=== PATIENT | male | born 1980 | race Caucasian/White ===

== ENCOUNTER 2017-04-10 17:37 | Emergency (ER) | payer SELFPAY ==
[~2017-04-10] VITALS: Ht 182.8 cm; Wt 104.3 kg
[~2017-04-10 17:37] MED LIST: CLINDAMYCIN HC300 MG PO; CYCLOBENZAPRINE10 MG PO; HYDROCODONE BIT1 T11 PO; KEFLEX500 MG PO; MOTRIN800 MG PO; Motrin,Rufen800 MG PO; NAPROSYN500 MG PO; NORCO 5-325 TA1 EACH PO; PREDNISONE10 MG PO
[2017-04-10] MEDS ORDERED: NAPROSYN500 MG PO (19:15)
== END 2017-04-10 19:18 | disposition home or self-care (01) ==
LOC: ED 17:37
DX: S93.402A Sprain of unspecified ligament of left ankle, initial encounter (principal); S90.112A Contusion of left great toe without damage to nail, initial encounter; R03.0 Elevated blood-pressure reading, without diagnosis of hypertension; X50.1XXA Overexertion from prolonged static or awkward postures, initial encounter; Y93.89 Activity, other specified; Y92.9 Unspecified place or not applicable; Y99.9 Unspecified external cause status

== ENCOUNTER 2018-05-12 18:35 | Emergency (ER) | payer SELFPAY ==
[~2018-05-12] VITALS: Ht 182.8 cm; Wt 104.3 kg
[2018-05-12 19:23] LABS: BASO % 0.3 % (0.0-1.0); EOS # 0.2 10*3/uL (0.0-0.4); EOS % 2.1 % (1.0-4.0); HEMOGLOBIN 15.9 g/dl (14.0-18.0); LYMPH # 1.5 10*3/uL (1.3-4.4); LYMPH % 16.6 % (27.0-41.0); MEAN CELL VOLUME 92.7 fl (80.0-94.0); MEAN CORPUSCULAR HGB 30.7 pg (27.0-31.0); MEAN CORPUSCULAR HGB CONC 33.1 g/dl (33.0-37.0); MEAN PLATELET VOLUME 9.4 fl (9.6-12.3); MONO # 0.8 10*3/uL (0.1-1.0); MONO % 9.6 % (3.0-9.0); NEUT # 6.2 10*3/uL (2.3-7.9); NEUT % 70.9 % (47.0-73.0); PLATELET COUNT AUTOMATED 211 10*3/uL (130-400); RED BLOOD COUNT 5.18 10*6/uL (4.50-5.90); RED CELL DISTRI WIDTH 12.6 % (0-14.5); WHITE BLOOD COUNT 8.7 10*3/uL (4.8-10.8)
[2018-05-12 19:38] LABS: ALBUMIN 3.1 gm/dl (3.1-4.5); ALKALINE PHOSPHATASE 74 U/L (45-117); BUN 7 mg/dl (7-24); CHLORIDE 103 mmol/L (98-107); CREATININE 0.81 mg/dL (0.70-1.30); POTASSIUM 3.9 mmol/L (3.5-5.1); SGOT/AST 13 IU/L (3-35); SGPT/ALT 24 U/L (12-78); SODIUM 139 mmol/L (136-145); TOTAL PROTEIN 7.4 gm/dL (6.4-8.2)
[2018-05-12 20:10] LABS: BODY FLUID WBC 6562 /uL
[2018-05-12 21:11] LABS: BF LYMPHOCYTES 1 %; BF MACROPHAGES 14 %; BF NEUTROPHILS 85 %
[2018-05-12] MEDS ORDERED: VIBRAMYCIN100 MG PO (21:23)
[2018-05-12] MEDS ORDERED: Motrin,Rufen800 MG PO (21:27)
== END 2018-05-12 21:40 | disposition home or self-care (01) ==
LOC: ED 18:35
PROVIDERS: Physician Assistant
DX: M65.861 Other synovitis and tenosynovitis, right lower leg (principal); M25.551 Pain in right hip; M25.561 Pain in right knee

== ENCOUNTER → 2018-10-22 | Outpatient (CLI) | payer SELFPAY ==
[~2018-10-22] MED LIST changes: +EC NAPROSYN500 MG PO; +INDOCIN50 M2 PO; +VIBRAMYCIN100 MG PO
== END | disposition home or self-care (01) ==
LOC: RESCLI 01:53
DX: M10.9 Gout, unspecified (principal); R00.1 Bradycardia, unspecified; F10.10 Alcohol abuse, uncomplicated; Z71.89 Other specified counseling; Z88.8 Allergy status to other drugs, medicaments and biological substances

== ENCOUNTER → 2018-12-14 | Outpatient (CLI) | payer SELFPAY | END | disposition home or self-care (01) | LOC: RESCLI 01:08 | DX: F10.10 Alcohol abuse, uncomplicated (principal); R00.1 Bradycardia, unspecified; M1A.9XX0 Chronic gout, unspecified, without tophus (tophi); Z71.89 Other specified counseling; Z79.899 Other long term (current) drug therapy; Z88.8 Allergy status to other drugs, medicaments and biological substances ==

== ENCOUNTER 2019-11-18 19:30 | Emergency (ER) | payer SELFPAY ==
[~2019-11-18] VITALS: Ht 180.3 cm; Wt 104.3 kg
[2019-11-18 20:56] LABS: BASO % 0.3 % (0.0-1.0); EOS # 0.1 10*3/uL (0.0-0.4); HEMATOCRIT 46.8 % (42.0-52.0); HEMOGLOBIN 15.8 g/dl (14.0-18.0); LYMPH # 1.5 10*3/uL (1.3-4.4); LYMPH % 13.1 % (27.0-41.0); MEAN CORPUSCULAR HGB 31.7 pg (27.0-31.0); MEAN CORPUSCULAR HGB CONC 33.8 g/dl (33.0-37.0); MEAN PLATELET VOLUME 9.4 fl (9.6-12.3); MONO # 0.9 10*3/uL (0.1-1.0); MONO % 7.6 % (3.0-9.0); NEUT % 77.6 % (47.0-73.0); PLATELET COUNT AUTOMATED 221 10*3/uL (130-400); RED BLOOD COUNT 4.98 10*6/uL (4.50-5.90); RED CELL DISTRI WIDTH 12.3 % (0-14.5); WHITE BLOOD COUNT 11.7 10*3/uL (4.8-10.8)
[2019-11-18 21:14] LABS: ALBUMIN 3.4 gm/dl (3.1-4.5); BUN 8 mg/dl (7-24); CHLORIDE 107 mmol/L (98-107); CREATININE 0.78 mg/dL (0.70-1.30); POTASSIUM 3.8 mmol/L (3.5-5.1); SGOT/AST 19 IU/L (3-35); SGPT/ALT 28 U/L (12-78); SODIUM 136 mmol/L (136-145); TOTAL PROTEIN 7.9 gm/dL (6.4-8.2)
[2019-11-18 21:15] LABS: ALKALINE PHOSPHATASE 88 U/L (45-117)
== END 2019-11-18 23:10 | disposition left against medical advice (07) ==
LOC: ED 19:30
PROVIDERS: Physician Assistant
DX: L03.113 Cellulitis of right upper limb (principal)

== ENCOUNTER 2019-11-19 01:13 | Inpatient (IN) | payer SELFPAY ==
[~2019-11-19] VITALS: Ht 180.3 cm; Wt 101.8 kg
[2019-11-19] VITALS (9 sets, daily range): BP systolic 137–172; BP diastolic 63–100
[2019-11-19 06:23] LABS: BASO # 0.1 10*3/uL (0.0-0.1); BASO % 0.4 % (0.0-1.0); EOS # 0.2 10*3/uL (0.0-0.4); EOS % 1.7 % (1.0-4.0); HEMATOCRIT 44.9 % (42.0-52.0); HEMOGLOBIN 14.7 g/dl (14.0-18.0); LYMPH # 2.1 10*3/uL (1.3-4.4); LYMPH % 17.2 % (27.0-41.0); MEAN CELL VOLUME 94.9 fl (80.0-94.0); MEAN CORPUSCULAR HGB 31.1 pg (27.0-31.0); MEAN CORPUSCULAR HGB CONC 32.7 g/dl (33.0-37.0); MEAN PLATELET VOLUME 9.7 fl (9.6-12.3); MONO # 1.3 10*3/uL (0.1-1.0); MONO % 10.5 % (3.0-9.0); NEUT # 8.5 10*3/uL (2.3-7.9); NEUT % 69.6 % (47.0-73.0); PLATELET COUNT AUTOMATED 238 10*3/uL (130-400); RED BLOOD COUNT 4.73 10*6/uL (4.50-5.90); RED CELL DISTRI WIDTH 12.2 % (0-14.5); WHITE BLOOD COUNT 12.2 10*3/uL (4.8-10.8)
[2019-11-19 06:44] LABS: BUN 10 mg/dl (7-24); CHLORIDE 110 mmol/L (98-107); CHOLESTEROL 175 mg/dL (<200); CREATININE 0.89 mg/dL (0.70-1.30); FREE T4 0.88 ng/dl (0.76-1.46); HDL CHOLESTEROL 67 mg/dl (40-60); LDL CHOLESTEROL 68 mg/dL (9-159); PHOSPHOROUS 2.6 mg/dL (2.5-4.9); POTASSIUM 3.8 mmol/L (3.5-5.1); SODIUM 137 mmol/L (136-145); TRIGLYCERIDES 198 mg/dl (<150); VLDL CHOLESTEROL 40 mg/dL (6-40)
[2019-11-19 06:58] LABS: ACT PARTIAL THROMBO TIME 28.2 SECONDS (20.0-32.1)
[2019-11-19 08:09] LABS: VITAMIN D, 25-HYDROXY 23.5 ng/mL (30-100)
[2019-11-20] VITALS: BP 137/78
[2019-11-20 08:00] VITALS: BP 138/88
[2019-11-20] MEDS ORDERED: NORCO 5-325 TA1 EACH PO (09:53)
[2019-11-20] MEDS ORDERED: ALLOPURINOL100 MG PO (09:53)
[2019-11-20] MEDS ORDERED: PREDNISONE50 MG PO (09:53)
[2019-11-20] MEDS ORDERED: OMNICEF300 MG PO (09:53)
[2019-11-20] MEDS ORDERED: VITAMIN D32000 UNI1 PO (09:53)
== END 2019-11-20 11:28 | disposition home or self-care (01) | DRG 872 ==
LOC: ED 01:13 → EDHOLD 02:38 → 5E 02:57
PROVIDERS: Internal Medicine; ADMIT Internal Medicine
DX: A41.9 Sepsis, unspecified organism (principal); L03.113 Cellulitis of right upper limb; M10.9 Gout, unspecified; E66.9 Obesity, unspecified; E55.9 Vitamin D deficiency, unspecified; R03.0 Elevated blood-pressure reading, without diagnosis of hypertension; Z71.6 Tobacco abuse counseling; Z72.0 Tobacco use; Z68.31 Body mass index [BMI] 31.0-31.9, adult; Z82.49 Family history of ischemic heart disease and other diseases of the circulatory system

== ENCOUNTER 2019-12-23 22:59 | Emergency (ER) | payer SELFPAY ==
[~2019-12-23] VITALS: Ht 180.3 cm; Wt 104.3 kg
[~2019-12-23 22:59] MED LIST changes: +ALLOPURINOL100 MG PO; +OMNICEF300 MG PO; +PREDNISONE50 MG PO; +VITAMIN D32000 UNI1 PO
[2019-12-23 23:40] LABS: BASO % 0.4 % (0.0-1.0); EOS # 0.1 10*3/uL (0.0-0.4); EOS % 0.9 % (1.0-4.0); HEMATOCRIT 43.1 % (42.0-52.0); HEMOGLOBIN 14.1 g/dl (14.0-18.0); LYMPH # 1.6 10*3/uL (1.3-4.4); LYMPH % 15.7 % (27.0-41.0); MEAN CELL VOLUME 92.5 fl (80.0-94.0); MEAN CORPUSCULAR HGB 30.3 pg (27.0-31.0); MEAN CORPUSCULAR HGB CONC 32.7 g/dl (33.0-37.0); MEAN PLATELET VOLUME 9.6 fl (9.6-12.3); MONO # 0.7 10*3/uL (0.1-1.0); MONO % 6.8 % (3.0-9.0); NEUT # 7.8 10*3/uL (2.3-7.9); NEUT % 75.8 % (47.0-73.0); PLATELET COUNT AUTOMATED 210 10*3/uL (130-400); RED BLOOD COUNT 4.66 10*6/uL (4.50-5.90); RED CELL DISTRI WIDTH 12.6 % (0-14.5); WHITE BLOOD COUNT 10.3 10*3/uL (4.8-10.8)
[2019-12-23 23:53] LABS: BUN 10 mg/dl (7-24); CHLORIDE 107 mmol/L (98-107); CREATININE 0.86 mg/dL (0.70-1.30); POTASSIUM 3.4 mmol/L (3.5-5.1); SODIUM 137 mmol/L (136-145); URIC ACID 6.3 mg/dL (3.5-7.2)
[2019-12-24] MEDS ORDERED: NORCO 5-325 TA1 EACH PO (00:33)
[2019-12-24] MEDS ORDERED: INDOMETHACIN50 MG PO (00:33)
== END 2019-12-24 01:30 | disposition home or self-care (01) ==
LOC: ED 22:59
PROVIDERS: Emergency Medicine Emergency Medical Services
DX: M10.9 Gout, unspecified (principal); F17.200 Nicotine dependence, unspecified, uncomplicated; Z79.899 Other long term (current) drug therapy

== ENCOUNTER 2020-05-18 21:08 | Emergency (ER) | payer SELFPAY ==
[~2020-05-18] VITALS: Ht 180.3 cm; Wt 108.9 kg
[~2020-05-18 21:08] MED LIST changes: +INDOMETHACIN50 MG PO
[2020-05-18] MEDS ORDERED: INDOMETHACIN50 MG PO (22:49)
[2020-05-18] MEDS ORDERED: NORCO 5-325 TA1 EACH PO (22:53)
== END 2020-05-18 23:39 | disposition home or self-care (01) ==
LOC: ED 21:08
DX: M10.9 Gout, unspecified (principal); M79.641 Pain in right hand; M79.642 Pain in left hand; E66.9 Obesity, unspecified; F17.210 Nicotine dependence, cigarettes, uncomplicated

== ENCOUNTER 2020-09-05 22:37 | Observation (INO) | payer MEDICAID ==
[~2020-09-05] VITALS: Ht 180.3 cm; Wt 106.2 kg
[2020-09-05 22:49] VITALS: BP 176/90
[2020-09-05 22:51] VITALS: BP 170/101
[2020-09-05 23:57] LABS: BASO # 0.1 10*3/uL (0.0-0.1); BASO % 0.5 % (0.0-1.0); EOS # 0.1 10*3/uL (0.0-0.4); EOS % 0.8 % (1.0-4.0); HEMATOCRIT 47.7 % (42.0-52.0); LYMPH % 10.6 % (27.0-41.0); MEAN CELL VOLUME 92.6 fl (80.0-94.0); MEAN CORPUSCULAR HGB 30.3 pg (27.0-31.0); MEAN CORPUSCULAR HGB CONC 32.7 g/dl (33.0-37.0); MEAN PLATELET VOLUME 9.4 fl (9.6-12.3); MONO # 0.6 10*3/uL (0.1-1.0); MONO % 6.5 % (3.0-9.0); NEUT # 7.7 10*3/uL (2.3-7.9); NEUT % 81.3 % (47.0-73.0); PLATELET COUNT AUTOMATED 236 10*3/uL (130-400); RED BLOOD COUNT 5.15 10*6/uL (4.50-5.90); RED CELL DISTRI WIDTH 13.2 % (0-14.5); WHITE BLOOD COUNT 9.5 10*3/uL (4.8-10.8)
[2020-09-06] VITALS (8 sets, daily range): BP systolic 138–161; BP diastolic 86–99
[2020-09-06 00:08] LABS: ACT PARTIAL THROMBO TIME 25.4 SECONDS (20.0-32.1)
[2020-09-06] MEDS ORDERED: CEPHALEXIN500 M1 PO ×2 (00:15)
[2020-09-06 00:16] LABS: ALBUMIN 3.7 gm/dl (3.1-4.5); ALKALINE PHOSPHATASE 93 U/L (45-117); BUN 6 mg/dl (7-24); CHLORIDE 107 mmol/L (98-107); CREATININE 0.79 mg/dL (0.70-1.30); LIPASE 214 U/L (73-393); POTASSIUM 3.2 mmol/L (3.5-5.1); SGOT/AST 43 IU/L (3-35); SGPT/ALT 42 U/L (12-78); SODIUM 141 mmol/L (136-145); TOTAL PROTEIN 8.1 gm/dL (6.4-8.2)
[2020-09-06 00:37] LABS: BILIRUBIN Negative (Negative); BLOOD Negative (Negative); CLARITY Clear (Clear); COLOR Yellow (Yellow); GLUCOSE Negative (Negative); KETONE Negative (Negative); LEUKO ESTERASE Negative (Negative); NITRITE Negative (Negative); PH 7.5 (4.5-8.0); SPECIFIC GRAVITY <= 1.005 (1.001-1.030); UROBILINOGEN 0.2 E.U./dl (0.0-1.0)
[2020-09-06 01:02] LABS: URINE AMPHETAMINES < 1000 (1000ng/ml); URINE BARBITURATES < 200 (200ng/ml); URINE BENZODIAZEPINES < 200 (200ng/ml); URINE CANNABINOIDS (THC) < 50 (50ng/ml); URINE COCAINE < 300 (300ng/ml); URINE METHADONE < 300 (300ng/ml); URINE OPIATES < 300 (300ng/ml)
[2020-09-06 01:06] LABS: URINE PHENCYCLIDINE < 25 (25ng/ml)
[2020-09-06 01:18] LABS: WBC 0-2 wbc/hpf (0-5)
[2020-09-06 01:19] LABS: RBC 0-2 rbc/hpf (0-2)
--- NOTE | 2020-09-06 01:44 | NUR ---
PT DENIES ANY WOUNDS AT THIS TIME.
--- NOTE | 2020-09-06 03:22 | NUR ---
SECOND EKG COMPLETED.
[2020-09-06 07:01] LABS: BASO # 0.1 10*3/uL (0.0-0.1); BASO % 0.7 % (0.0-1.0); EOS # 0.2 10*3/uL (0.0-0.4); EOS % 2.7 % (1.0-4.0); HEMATOCRIT 42.6 % (42.0-52.0); LYMPH # 2.1 10*3/uL (1.3-4.4); LYMPH % 25.4 % (27.0-41.0); MEAN CELL VOLUME 92.6 fl (80.0-94.0); MEAN CORPUSCULAR HGB 30.4 pg (27.0-31.0); MEAN CORPUSCULAR HGB CONC 32.9 g/dl (33.0-37.0); MEAN PLATELET VOLUME 9.2 fl (9.6-12.3); MONO # 0.8 10*3/uL (0.1-1.0); MONO % 9.1 % (3.0-9.0); NEUT # 5.1 10*3/uL (2.3-7.9); NEUT % 61.9 % (47.0-73.0); PLATELET COUNT AUTOMATED 190 10*3/uL (130-400); RED CELL DISTRI WIDTH 13.5 % (0-14.5); WHITE BLOOD COUNT 8.2 10*3/uL (4.8-10.8)
[2020-09-06 07:31] LABS: BUN 5 mg/dl (7-24); CHLORIDE 111 mmol/L (98-107); POTASSIUM 3.7 mmol/L (3.5-5.1); SODIUM 142 mmol/L (136-145)
--- NOTE | 2020-09-06 07:39 | NUR ---
PT REFUSED PHOTO OF LACERATION.
[2020-09-06 07:45] LABS: CHOLESTEROL 161 mg/dL (<200); CREATININE 0.74 mg/dL (0.70-1.30); HDL CHOLESTEROL 73 mg/dl (40-60); LDL CHOLESTEROL 64 mg/dL (9-159); TRIGLYCERIDES 120 mg/dl (<150); VLDL CHOLESTEROL 24 mg/dL (6-40)
--- NOTE | 2020-09-06 08:00 | NUR ---
PT SITTING UP IN BED TALKING TO RESIDENT. A&OX3, DENIES PAIN, SOB, CHEST PAIN, OR DIZZINESS [facility] INTACT TO LEFT PARITAL AREA, NO DRAINAGE CT HERE TO TRANSPORT TO RADIOLOGY
--- NOTE | 2020-09-06 08:34 | NUR ---
PT RETURNED FROM CT, AMBULATED TO [facility]STR[facility]OM [facility]IST[facility], GAIT SLOW AND STEADY
[2020-09-06 08:37] LABS: VITAMIN D, 25-HYDROXY 31.8 ng/mL (30-100)
--- NOTE | 2020-09-06 11:24 | NUR ---
REPORT TO BOB
--- NOTE | 2020-09-06 11:41 | NUR ---
PT RESTING BED. PROVIDED PT WITH LUNCH. RESP EASY AND NONLABORED ON ROOM AIR. NO COMPLAINTS VOICED.
--- NOTE | 2020-09-06 11:57 | NUR ---
NOTIFIED DR SINGH OF CONSULT.
--- NOTE | 2020-09-06 14:48 | NUR ---
PT AMBULATED TO BATHROOM. GAIT STEADY. NO FURTHER COMPLAINTS.
--- NOTE | 2020-09-06 17:00 | NUR ---
A 39, admitted to 5E, under the services of THAD Pastrana DO with a diagnosis of SYNCOPE, ELEVATED TROPONINS. Chief complaint is SYNCOPAL EPISODE WITH FALL AND LACERATION. Patient arrived via bed from ER. Monitor applied. Initial assessment completed. Vital signs taken and recorded. THAD PASTRANA DO notified of admission to the unit. Orders received. See assessment for past medical history, medications and allergies. Patient and/or family oriented to unit. [address] visitation policy reviewed. Clothing/patient valuable form completed. JAGUAR SANDOVAL R
[2020-09-06] MEDS ORDERED: INDOMETHACIN50 MG PO (17:08)
--- NOTE | 2020-09-06 19:05 | NUR ---
DR. MORTENSEN CALLED AWARE OF ORTHOSTATIC BP. SEE INTERVENTIONS SCREEN. HE WILL LOOK AT IT.
--- NOTE | 2020-09-06 20:00 | NUR ---
IN TO ASSESS PATIENT. PATIENT SLEEPING BUT AROUSES EASILY. PLESANT AND COOPERATIVE. BREATHING IS EASY AND REGULAR ON ROOM AIR. PATIENT STATES HE FEELS PRETTY GOOD RIGHT NOW JUST A LITTLE SORE IN HIS LEFT KNEE AND LEFT RIBS WHERE HE FELL AND HIT. PATIENT STATES HIS BLOOD PRESSURE HAS BEEN A BIT UP, BP MANUALLY WAS 138/86. HE STATES HE NORMALLY DRINKS ABOUT 10 BEERS DAILY SO HE DIDN'T KNOW IF THAT WAS THE REASON. NO VISABLE TREMORS NOTED. PATIENT HAS NO COMPLAINTS BESIDES BEING TIRED. CALL LIGHT WITHIN REACH, WILL MONITOR
[2020-09-07] VITALS: BP 149/90
[2020-09-07 06:52] LABS: BASO # 0.1 10*3/uL (0.0-0.1); BASO % 0.7 % (0.0-1.0); EOS # 0.3 10*3/uL (0.0-0.4); EOS % 2.8 % (1.0-4.0); HEMATOCRIT 41.3 % (42.0-52.0); LYMPH # 1.9 10*3/uL (1.3-4.4); LYMPH % 17.7 % (27.0-41.0); MEAN CELL VOLUME 93.7 fl (80.0-94.0); MEAN CORPUSCULAR HGB 30.6 pg (27.0-31.0); MEAN CORPUSCULAR HGB CONC 32.7 g/dl (33.0-37.0); MONO # 0.9 10*3/uL (0.1-1.0); MONO % 8.2 % (3.0-9.0); NEUT # 7.4 10*3/uL (2.3-7.9); NEUT % 70.2 % (47.0-73.0); PLATELET COUNT AUTOMATED 182 10*3/uL (130-400); RED BLOOD COUNT 4.41 10*6/uL (4.50-5.90); RED CELL DISTRI WIDTH 13.2 % (0-14.5); WHITE BLOOD COUNT 10.6 10*3/uL (4.8-10.8)
[2020-09-07 07:05] LABS: BUN 4 mg/dl (7-24); CHLORIDE 107 mmol/L (98-107); CREATININE 0.65 mg/dL (0.70-1.30); POTASSIUM 3.4 mmol/L (3.5-5.1); SODIUM 140 mmol/L (136-145)
--- NOTE | 2020-09-07 09:00 | NUR ---
Medical Imaging Technician in to talk to patient. Patient states lives at home with his girlfriend. There are 0 steps in the home. There are 5 outside steps. Physician: [facility]: [facility] Home health services: none Patient's level of ADLs: INDEPENDENT Patient has working utilities: yes DME: none Follow-up physician's appointment after d/c: will be made by the hospitalist nurse director upon discharge Does patient want to access PORTAL?: no Discharge plan discussed with patient. He lives at home with his girlfriend. He is independent in his ADLs and ambulation. Discussed home health care services and he declines. CM will continue to follow for any discharge planning needs. When medically stable he will be discharged to home. He states his girlfriend will provide transportation on discharge. VIKAS LEONG
[2020-09-07 12:00] VITALS: BP 130/82
--- NOTE | 2020-09-07 14:54 | NUR ---
Discharge instructions reviewed with patient/family. Patient receptive and verbalizes understanding. Follow-up care arranged. Written instructions given to patient/family. RABIA DICKEY
== END 2020-09-07 14:54 | disposition home or self-care (01) ==
LOC: ED 22:37 → EDHOLD 09-06 01:12 → 5E 09-06 16:46
PROVIDERS: Hospitalist; Internal Medicine; Physician Assistant; ADMIT Family Medicine; ATTEND Family Medicine
DX: R07.89 Other chest pain (principal); R55 Syncope and collapse; R77.8 Other specified abnormalities of plasma proteins; S01.01XA Laceration without foreign body of scalp, initial encounter; I10 Essential (primary) hypertension; E87.6 Hypokalemia; R73.9 Hyperglycemia, unspecified; R74.01 Elevation of levels of liver transaminase levels; R79.82 Elevated C-reactive protein (CRP); F17.220 Nicotine dependence, chewing tobacco, uncomplicated; E66.9 Obesity, unspecified

== ENCOUNTER → 2020-09-25 | Outpatient (CLI) | payer SELFPAY ==
[~2020-09-25] MED LIST changes: +CEPHALEXIN500 M1 PO
== END | disposition home or self-care (01) ==
LOC: RESCLI 09-24 00:36
PROVIDERS: ATTEND Emergency Medicine
DX: Z48.02 Encounter for removal of sutures (principal); M1A.9XX0 Chronic gout, unspecified, without tophus (tophi)